=== PATIENT | male | born 1950 | race Caucasian/White ===

== ENCOUNTER 2016-10-30 10:30 | Outpatient (CLI) | payer OTHER | END 2016-10-30 19:58 | disposition home or self-care (01) | LOC: SRD 10:30 | PROVIDERS: ATTEND Internal Medicine | DX: R05 Cough (principal); M47.899 Other spondylosis, site unspecified; I70.0 Atherosclerosis of aorta | CPT/HCPCS: 71020-TC ==

== ENCOUNTER 2017-05-09 10:57 | Outpatient (CLI) | payer OTHER | END 2017-05-09 20:16 | disposition home or self-care (01) | LOC: SRD 10:57 | PROVIDERS: ATTEND Urology | DX: N39.3 Stress incontinence (female) (male) (principal); N39.41 Urge incontinence | CPT/HCPCS: 74000-TC ==

== ENCOUNTER 2020-08-07 10:00 | Emergency (ER) | payer OTHER ==
[~2020-08-07] VITALS: Ht 185.4 cm; Wt 113.4 kg
[2020-08-07 10:00] VITALS: BP_SYST 154
--- NOTE | 2020-08-07 10:00 | NUR ---
Patient triaged and placed in waiting room. VSS and patient appears in no acute distress at this time. Accompanied by SELF, awaiting available bed, and MD notified of need for MSE.
--- NOTE | 2020-08-07 11:01 | NUR ---
TAKEN TO RADIOLOGY VIA WHEELCHAIR
--- NOTE | 2020-08-07 12:18 | NUR ---
BROUGHT BACK TO BED #7 VIA WHEELCHAIR, PLACED IN BED AND REPORT GIVEN TO ABENA
--- NOTE | 2020-08-07 12:20 | NUR ---
Patient presented to ER C/O knee pain. Patient wheelchair to ER, afebrile, skin pink and warm, swelling to left knee, pain /, denies N/V/D. Patient states he was closing garage door when "heavy garage door got away from him and jerked him forward" and PT states he heard a "pop" from knee. Pain with ambulation 07/08.
--- NOTE | 2020-08-07 12:23 | NUR ---
ER Dr. Gooden at bedside examining patient.
--- NOTE | 2020-08-07 13:30 | NUR ---
Knee Immobolizer applied to left leg. pedal pulse noted. Capillary refill <3 seconds. Patient has ability to move toes. Has sensation present to affected site. Skin color within normal limits.
[2020-08-07 14:05] VITALS: BP_SYST 149
--- NOTE | 2020-08-07 14:05 | NUR ---
Patient given written and verbal discharge instructions and verbalizes understanding. ER MD discussed with patient the results and treatment provided. Patient in stable condition. ID arm band removed. Rx of tramadol given. Patient educated on pain management and to follow up with PMD. Pain Scale 2/10 . Opportunity for questions provided and answered. Medication side effect fact sheet provided.
== END 2020-08-07 14:05 | disposition home or self-care (01) ==
LOC: SED 10:00
DX: S83.92XA Sprain of unspecified site of left knee, initial encounter (principal); X50.0XXA Overexertion from strenuous movement or load, initial encounter; Y93.89 Activity, other specified; Y92.89 Other specified places as the place of occurrence of the external cause; Y99.8 Other external cause status
CPT/HCPCS: 73564; 99283

== ENCOUNTER 2023-01-23 10:13 | Outpatient (CLI) | payer OTHER ==
[2023-01-23 11:41] LABS: BASOPHILS % (AUTO) 0.6 % (0.0-2.0); EOSINOPHILS # (AUTO) 0.2 K/uL (0.0-0.4); EOSINOPHILS % (AUTO) 3.7 % (0.0-4.0); HEMATOCRIT 41.6 % (36-54); HEMOGLOBIN 14.5 g/dL (14.0-18.0); LYMPHOCYTES # (AUTO) 1.8 K/uL (1.0-5.5); LYMPHOCYTES % (AUTO) 31.3 % (20.5-51.5); MEAN CORPUSCULAR HEMOGLOBIN 33 pg (27-31); MEAN CORPUSCULAR HGB CONC 35 % (32-36); MEAN CORPUSCULAR VOLUME 95 fL (79.0-98.0); MONOCYTES # (AUTO) 0.6 K/uL (0.0-1.0); MONOCYTES % (AUTO) 9.8 % (1.7-9.3); NEUTROPHILS # (AUTO) 3.1 K/uL (1.8-7.7); NEUTROPHILS % (AUTO) 54.6 % (40.0-70.0); PLATELET COUNT (AUTO) 205 K/uL (130-430); RED BLOOD CELL COUNT(AUTO) 4.39 MIL/uL (4.2-6.2); RED CELL DISTRIBUTION WIDTH 13.2 % (9.0-15.0); WHITE BLOOD COUNT (AUTO) 5.7 K/uL (4.8-10.8)
[2023-01-23 12:10] LABS: ALBUMIN 3.7 g/dL (3.4-4.8); CALCIUM 9.1 mg/dL (8.4-11.0); CREATININE 0.92 mg/dL (0.55-1.30); THYROID STIMULATING HORMONE 1.37 uIu/mL (0.34-4.82)
[2023-01-24 08:07] LABS: PROSTATE SPECIFIC AG 0.3 ng/mL (0.0-4.0)
== END 2023-01-23 20:49 | disposition home or self-care (01) ==
LOC: SLB 10:13
PROVIDERS: ATTEND Internal Medicine
DX: I10 Essential (primary) hypertension (principal); E78.5 Hyperlipidemia, unspecified; N40.1 Benign prostatic hyperplasia with lower urinary tract symptoms; E55.9 Vitamin D deficiency, unspecified; E56.9 Vitamin deficiency, unspecified; R00.9 Unspecified abnormalities of heart beat; I70.0 Atherosclerosis of aorta; M47.814 Spondylosis without myelopathy or radiculopathy, thoracic region
CPT/HCPCS: 36415; 71046-TC; 80053; 80061; 82306; 82607; 83037; 84153; 84443; 85025; 93005; 93306